=== PATIENT | female | born 1990 | race Caucasian/White ===

== ENCOUNTER 2022-03-24 01:45 | Emergency (ER) | payer BC ==
[~2022-03-24] VITALS: Ht 147.3 cm; Wt 53.1 kg
[~2022-03-24 01:45] MED LIST: PREN-385 PO
[2022-03-24 01:59] VITALS: BP 133/90
--- NOTE | 2022-03-24 02:07 | NUR ---
Patient taken to bed 12.
[2022-03-24] MEDS ORDERED: ACETAMINOPHEN EXTRA STRENGTH 500 MG TAB PO ONE (02:20)
[2022-03-24] MEDS ORDERED: IBUP-1878 PO (03:23)
[2022-03-24] MEDS ORDERED: CEPH-588 PO (03:23)
[2022-03-24] MEDS ORDERED: KETOROLAC 60 MG/2 ML VIAL IM ONE (03:25)
[2022-03-24] MEDS ORDERED: cefTRIAXone 1,000 MG in LIDOCAINE MPF 1% 2.1 ML IM ONE (03:25)
--- NOTE | 2022-03-24 03:29 | NUR ---
31YR OLD FEMALE BIB SELF C/0 ABD PAIN X1DAY. RLQ PAIN SINCE YESTERDAY. SHARP PAIN LEVEL 02/12. PT DENIES N/V/D . NEG PREG TEST. DENIES URINATION DIFFICULTY. AT BEDSIDE. RESP EVEN AND UNLABORED. SKIN IS WARM AND DRY. BED AT LOWEST POSITION. NKDA NO MED HX
[2022-03-24] MEDS ORDERED: LIDOCAINE MPF 1% 5 ML ONE (03:32)
[2022-03-24] MEDS ORDERED: cefTRIAXone 1,000 MG VIAL ONE (03:32)
--- NOTE | 2022-03-24 03:52 | NUR ---
PT RESTING WITH RYAN AT BEDSIDE. PAIN 8. DESCRIBES THE PAIN A BURNING/SCRATCHING PAIN TO RLQ.
--- NOTE | 2022-03-24 04:20 | NUR ---
RECEIVED REPORT FROM CRISTY TELLEZ, TRANSFER OF CARE AT THIS TIME
[2022-03-24 05:05] VITALS: BP 121/74
--- NOTE | 2022-03-24 05:06 | NUR ---
Patient discharged with v/s stable. Written and verbal after care instructions given and explained. Patient alert, oriented and verbalized understanding of instructions. Ambulatory with steady gait. All questions addressed prior to discharge. ID band removed. Patient advised to follow up with PMD. Rx of KELFEX, MOTRIN given. Patient educated on indication of medication including possible reaction and side effects. Opportunity to ask questions provided and answered.
== END 2022-03-24 05:06 | disposition home or self-care (01) ==
LOC: MED 01:45
DX: N39.0 Urinary tract infection, site not specified (principal)
CPT/HCPCS: 81002; 81025; 96372; 99284; J0696; J1885; J2001